=== PATIENT | male | born 1960 | race Caucasian/White ===

== ENCOUNTER 2018-04-04 14:38 | Emergency (ER) | payer MEDICARE ==
[~2018-04-04] VITALS: Ht 177.8 cm; Wt 67.1 kg
[~2018-04-04 14:38] MED LIST: ACET325 PO; ALBIPROI PO; AMOX500 PO; AMOX875 PO; ASPI325 PO; CIPR500 PO; FLUC150A PO; FLUT.05NI; HYDACE5 PO; LEVO750 PO; LOPE2C PO; MAGOXI400 PO; NAPR500 PO; ONDA4 PO; OXYC20L PO; PRED20 PO
[2018-04-04 15:45] LABS: Calcium, Ionized (POC) 0.96 mmol/L (1.10-1.46); Chloride (POC) 102 mmol/L (98-108); Creatinine (POC) 0.9 mg/dL (0.8-1.3); Glucose (ISTAT POC) 89 mg/dL (70-99); Hemoglobin (POC) 14.6 g/dL (13.5-17.5); Potassium (POC) 4.4 mmol/L (3.5-5.5); Sodium (POC) 137 mmol/L (135-148); Total CO2 (POC) 23 mmol/L (21-32)
== END 2018-04-04 16:49 | disposition home or self-care (01) ==
LOC: ER 14:38
PROVIDERS: Physician Assistant
DX: R10.13 Epigastric pain (principal); J43.9 Emphysema, unspecified; Z79.899 Other long term (current) drug therapy; F17.200 Nicotine dependence, unspecified, uncomplicated; Z85.818 Personal history of malignant neoplasm of other sites of lip, oral cavity, and pharynx
CPT/HCPCS: 36415; 74177; 80047; 85014; 99284-25; Q9967

== ENCOUNTER 2018-07-21 05:57 | Day surgery (SDC) | payer MEDICARE, SELFPAY ==
[~2018-07-21] VITALS: Ht 177.8 cm; Wt 68.5 kg
[~2018-07-21 05:57] MED LIST changes: +AEREDS; +ONE A DAY MENS PO; +THYR60 PO
--- NOTE | 2018-07-21 07:00 | NUR ---
Ambulatory in Day Surgery History, Chart, Medications and Allergies reviewed before start of procedure. Lungs clear T/O to Auscultation. Patient confirms NPO status and agrees with scheduled surgery. Pre-Op teaching done. Pt verbalizes understanding.
--- NOTE | 2018-07-21 09:20 | NUR ---
INTO STEP FROM PACU VSS DRSSING CDI OCCASIONAL COUGH. DENIES PAIN.
--- NOTE | 2018-07-21 10:05 | NUR ---
DISCHARGE INSTRUCITONS GONE OVER WITH Discharge instructions reviewed with patient. Patient verbalizes understanding. Copy given to patient to take home. Patient States Post-Procedure ride home has been arranged. Discharged via wheelchair to private car for ride home.
--- NOTE | 2018-07-22 09:29 | NUR ---
07/22/18 0929 Nanette Ernandez VERIFICATIONS: EDIT CHART.
== END 2018-07-21 22:45 | disposition home or self-care (01) ==
LOC: ORSCMMR 05:57 → ORD 07:30 → ORSCMMR 22:45
PROVIDERS: Surgery
PROC: 0WUF0JZ Supplement Abdominal Wall with Synthetic Substitute, Open Approach (ICD-10-PCS; principal; 2018-07-21 07:30)
DX: K43.9 Ventral hernia without obstruction or gangrene (principal); J44.9 Chronic obstructive pulmonary disease, unspecified; F17.210 Nicotine dependence, cigarettes, uncomplicated; E03.9 Hypothyroidism, unspecified; Z79.899 Other long term (current) drug therapy
CPT/HCPCS: C1781; J0690; J1100; J1885; J2250; J2370; J2405; J2704; J3010; J7120

== ENCOUNTER 2018-12-29 03:48 | Emergency (ER) | payer MEDICARE, OTHER ==
[~2018-12-29] VITALS: Ht 177.8 cm; Wt 70.3 kg
[2018-12-29] MEDS ORDERED: Cyclobenzaprine5 MG PO (06:00)
== END 2018-12-29 06:09 | disposition home or self-care (01) ==
LOC: ER 03:48
DX: S39.012A Strain of muscle, fascia and tendon of lower back, initial encounter (principal); F17.210 Nicotine dependence, cigarettes, uncomplicated; Z85.818 Personal history of malignant neoplasm of other sites of lip, oral cavity, and pharynx; Z79.899 Other long term (current) drug therapy; X50.0XXA Overexertion from strenuous movement or load, initial encounter
CPT/HCPCS: 72100; 96372; 99283-25; J1885; J7512

== ENCOUNTER 2019-05-02 02:34 | Emergency (ER) | payer MEDICARE, OTHER ==
[~2019-05-02] VITALS: Ht 177.8 cm; Wt 68.0 kg
[~2019-05-02 02:34] MED LIST changes: +Cyclobenzaprine5 MG PO
[2019-05-02 03:13] LABS: BASOPHILS ABSOLUTE AUTO 0.04 K/mm3 (0.00-0.23); BASOPHILS PERCENT AUTO 1 % (0-2); EOSINOPHILS ABSOLUTE AUTO 0.04 K/mm3 (0.00-0.68); EOSINOPHILS PERCENT AUTO 1 % (0-6); Hematocrit 49.2 % (37.0-53.0); Hemoglobin 15.8 g/dL (13.5-17.5); IMMATURE GRAN ABSOLUTE AUTO 0.01 K/mm3 (0.00-0.10); IMMATURE GRAN PERCENT AUTO 0 % (0-1); LYMPHOCYTES ABSOLUTE AUTO 0.75 K/mm3 (0.84-5.20); LYMPHOCYTES PERCENT AUTO 15 % (21-46); MONOCYTES ABSOLUTE AUTO 0.54 K/mm3 (0.16-1.47); MONOCYTES PERCENT AUTO 11 % (4-13); Mean Corpuscular HGB 28.2 pg (26.0-34.0); Mean Corpuscular HGB Conc 32.1 g/dL (31.5-36.5); Mean Corpuscular Volume 88 fL (80-100); Mean Platelet Volume 10.1 fL (9.1-12.4); NEUTROPHILS ABSOLUTE AUTO 3.78 K/mm3 (1.96-9.15); NEUTROPHILS PERCENT AUTO 73 % (41-73); Platelet Count 172 K/mm3 (150-400); RDW Coefficient Variation 12.8 % (11.7-14.2); RDW Standard Deviation 41.6 fL (35.1-46.3); White Blood Cell Count 5.16 K/mm3 (4.00-11.30)
[2019-05-02 03:37] LABS: Alanine Aminotransfer (ALT/SGP 27 U/L (12-78); Albumin, Blood 4.5 g/dL (3.4-5.0); Albumin/Globulin Ratio 1.2 (0.8-1.8); Alk Phos 76 U/L (50-136); Anion Gap 6 mmol/L (6-16); Aspartate Aminotrans (AST/SGOT 17 U/L (12-37); Bilirubin, Total 0.3 mg/dL (0.1-1.0); Blood Urea Nitrogen 7 mg/dL (8-24); Bun/Creatinine Ratio 7.2 (12.0-20.0); CO2, Blood 28 mmol/L (21-32); Calcium, Blood 9.3 mg/dL (8.5-10.1); Chloride, Blood 102 mmol/L (98-108); Creatinine, Blood 0.98 mg/dL (0.60-1.20); Globulin, Blood 3.9 g/dL (2.2-4.0); Glomerular Filtration Rate >60 (60-); Glucose, Blood 108 mg/dL (70-99); Potassium, Blood 4.2 mmol/L (3.5-5.5); Sodium, Blood 136 mmol/L (136-145); Total Protein, Blood 8.4 g/dL (6.4-8.2); Troponin I <0.015 ng/mL (0.000-0.040)
[2019-05-02] MEDS ORDERED: HYDHCL25 PO (03:46)
[2019-05-02] MEDS ORDERED: Prednisone20 MG PO (03:46)
[2019-05-03] MEDS ORDERED: SPACE CHAMBER1 EACH MC (16:52)
[2019-05-03] MEDS ORDERED: PRED10 PO (16:52)
[2019-05-03] MEDS ORDERED: AZIT250 PO (16:52)
== END 2019-05-02 04:07 | disposition home or self-care (01) ==
LOC: ER 02:34
PROVIDERS: Emergency Medicine
DX: J44.1 Chronic obstructive pulmonary disease with (acute) exacerbation (principal); F41.9 Anxiety disorder, unspecified; Z79.899 Other long term (current) drug therapy; F17.210 Nicotine dependence, cigarettes, uncomplicated
CPT/HCPCS: 36415; 71046; 80053; 84484; 85025; 93005; 93010; 94640; J7512

== ENCOUNTER 2019-05-03 13:06 | Emergency (ER) | payer MEDICARE, OTHER ==
[~2019-05-03] VITALS: Ht 177.8 cm; Wt 68.0 kg
[~2019-05-03 13:06] MED LIST changes: +HYDHCL25 PO; +Prednisone20 MG PO
[2019-05-03 13:45] LABS: Hematocrit 48.2 % (37.0-53.0); Hemoglobin 15.6 g/dL (13.5-17.5); Mean Corpuscular HGB 27.7 pg (26.0-34.0); Mean Corpuscular HGB Conc 32.4 g/dL (31.5-36.5); Mean Corpuscular Volume 86 fL (80-100); Mean Platelet Volume 10.3 fL (9.1-12.4); Platelet Count 167 K/mm3 (150-400); RDW Coefficient Variation 12.8 % (11.7-14.2); RDW Standard Deviation 40.2 fL (35.1-46.3); Red Blood Cell Count 5.63 M/mm3 (4.30-5.90); White Blood Cell Count 9.97 K/mm3 (4.00-11.30)
[2019-05-03 14:03] LABS: Alanine Aminotransfer (ALT/SGP 32 U/L (12-78); Albumin, Blood 4.4 g/dL (3.4-5.0); Albumin/Globulin Ratio 1.1 (0.8-1.8); Alk Phos 69 U/L (50-136); Anion Gap 7 mmol/L (6-16); Aspartate Aminotrans (AST/SGOT 21 U/L (12-37); Bilirubin, Total 0.4 mg/dL (0.1-1.0); Blood Urea Nitrogen 17 mg/dL (8-24); Bun/Creatinine Ratio 20.2 (12.0-20.0); CO2, Blood 28 mmol/L (21-32); Calcium, Blood 9.6 mg/dL (8.5-10.1); Chloride, Blood 102 mmol/L (98-108); Creatinine, Blood 0.84 mg/dL (0.60-1.20); Globulin, Blood 4.1 g/dL (2.2-4.0); Glomerular Filtration Rate >60 (60-); Glucose, Blood 108 mg/dL (70-99); Potassium, Blood 4.2 mmol/L (3.5-5.5); Sodium, Blood 137 mmol/L (136-145); Total Protein, Blood 8.5 g/dL (6.4-8.2); Troponin I <0.015 ng/mL (0.000-0.040)
[2019-05-03 14:21] LABS: BASOPHILS PERCENT MAN 0 % (0-2); EOSINOPHILS PERCENT MAN 0 % (0-6); LYMPHOCYTES ABSOLUTE MAN 0.69 K/mm3 (0.84-5.20); LYMPHOCYTES PERCENT MAN 7 % (21-46); MONOCYTES ABSOLUTE MAN 0.49 K/mm3 (0.16-1.47); MONOCYTES PERCENT MAN 5 % (4-13); NEUTROPHILS ABSOLUTE MAN 8.77 K/mm3 (1.96-9.15); SEG NEUTROPHILS PERCENT MAN 88 % (41-73); TOTAL CELLS COUNTED 100
[2019-05-03] MEDS ORDERED: AZIT250 PO (16:52)
[2019-05-03] MEDS ORDERED: SPACE CHAMBER1 EACH MC (16:52)
[2019-05-03] MEDS ORDERED: PRED10 PO (16:52)
== END 2019-05-03 17:25 | disposition home or self-care (01) ==
LOC: ER 13:06
PROVIDERS: Emergency Medicine
DX: J44.1 Chronic obstructive pulmonary disease with (acute) exacerbation (principal); F17.210 Nicotine dependence, cigarettes, uncomplicated; Z85.118 Personal history of other malignant neoplasm of bronchus and lung
CPT/HCPCS: 36415; 71045; 80053; 83880; 84484; 85025; 93005; 93010; 94644; 96374; 99284-25; J2930

== ENCOUNTER 2020-04-24 09:14 | Inpatient (IN) | payer MEDICARE, SELFPAY ==
[~2020-04-24] VITALS: Ht 177.8 cm; Wt 65.0 kg
[~2020-04-24 09:14] MED LIST changes: +AZIT250 PO; +PRED10 PO; +SPACE CHAMBER1 EACH MC
[2020-04-24] MEDS ORDERED: CILO100 PO (11:50)
[2020-04-24] MEDS ORDERED: Aspirin EC81 MG PO (11:50)
[2020-04-24 14:51] LABS: BASOPHILS ABSOLUTE AUTO 0.06 K/mm3 (0.00-0.23); BASOPHILS PERCENT AUTO 1 % (0-2); EOSINOPHILS PERCENT AUTO 1 % (0-6); Hematocrit 44.5 % (37.0-53.0); Hemoglobin 14.4 g/dL (13.5-17.5); IMMATURE GRAN ABSOLUTE AUTO 0.02 K/mm3 (0.00-0.10); IMMATURE GRAN PERCENT AUTO 0 % (0-1); LYMPHOCYTES ABSOLUTE AUTO 1.71 K/mm3 (0.84-5.20); LYMPHOCYTES PERCENT AUTO 23 % (21-46); MONOCYTES ABSOLUTE AUTO 0.45 K/mm3 (0.16-1.47); MONOCYTES PERCENT AUTO 6 % (4-13); Mean Corpuscular HGB 28.4 pg (26.0-34.0); Mean Corpuscular HGB Conc 32.4 g/dL (31.5-36.5); Mean Corpuscular Volume 88 fL (80-100); Mean Platelet Volume 10.8 fL (9.1-12.4); NEUTROPHILS ABSOLUTE AUTO 5.12 K/mm3 (1.96-9.15); NEUTROPHILS PERCENT AUTO 69 % (41-73); Platelet Count 178 K/mm3 (150-400); RDW Coefficient Variation 12.8 % (11.7-14.2); RDW Standard Deviation 41.3 fL (35.1-46.3); Red Blood Cell Count 5.07 M/mm3 (4.30-5.90); White Blood Cell Count 7.46 K/mm3 (4.00-11.30)
[2020-04-24 15:03] LABS: Alanine Aminotransfer (ALT/SGP 23 U/L (12-78); Albumin, Blood 4.1 g/dL (3.4-5.0); Albumin/Globulin Ratio 1.3 (0.8-1.8); Alk Phos 61 U/L (50-136); Anion Gap 4 mmol/L (6-16); Aspartate Aminotrans (AST/SGOT 11 U/L (12-37); Bilirubin, Total 0.5 mg/dL (0.1-1.0); Blood Urea Nitrogen 20 mg/dL (8-24); Bun/Creatinine Ratio 20.6 (12.0-20.0); CO2, Blood 30 mmol/L (21-32); Calcium, Blood 9.1 mg/dL (8.5-10.1); Chloride, Blood 107 mmol/L (98-108); Creatinine, Blood 0.97 mg/dL (0.60-1.20); Globulin, Blood 3.1 g/dL (2.2-4.0); Glomerular Filtration Rate >60 (60-); Glucose, Blood 84 mg/dL (70-99); Sodium, Blood 141 mmol/L (136-145); Total Protein, Blood 7.2 g/dL (6.4-8.2)
[2020-04-24 15:04] LABS: International Normalized Ratio 0.94; Prothrombin Time Results 10.1 Sec (9.7-11.5)
[2020-04-24 15:58] LABS: Influenza A, PCR NEGATIVE (NEGATIVE); Influenza B, PCR NEGATIVE (NEGATIVE); Resp Syncytial Virus, PCR NEGATIVE (NEGATIVE); SARS-Cov-2 (COVID-19) PCR, MMC NEGATIVE (NEGATIVE)
--- NOTE | 2020-04-24 17:48 | NUR ---
SUMMARY PT SITTING UP IN BED EATING DINNER, PT ADMITTED FROM THE ER, WILL HAVE A REVASCULARIZING PROCEDURE TOMORROW, A PROVIDER CAME UP TO SEE THE PT, PT IS ALERT AND ORIENTED, INDEPENDENT IN THE ROOM, L LEG COOL AND NUMB FROM MID BA DOWN, PULSES NOT PALPABLE ON THE L SIDE, FAINT ON THE RIGHT, PT DENIES ANY PAIN, VSS, NO COMPLAINTS, WILL CONT TO MONITOR
--- NOTE | 2020-04-25 07:43 | NUR ---
Abdias slept well considering staff was in his room several times to check IV pump, bathroom and plug ins after patient was oob to bathroom. No complaints of discomfort other that a high degree of sensivity over dorsal surface of left foot. Color of foot actually slightly improved overnight, still very difficult to genny and very clammy and cool. Patient worried and anxious about revascularization surgery today
--- NOTE | 2020-04-25 11:03 | NUR ---
PT ON HIS WAY TO THE FLOORING GRADER FOR REVASC PROCEDURE, AWAITING NEW BED ASSIGNMENT, WILL NOTIFY SPOUSE
--- NOTE | 2020-04-25 13:47 | NUR ---
PT ARRIVAL TO UNIT PT ARRIVED TO UNIT FROM [employer] TECHNICIAN. PT BRADYCARDIC, PHYSICIAN AWARE. BP STABLE. OXYGEN SATURATION STABLE ON RA. L RADIAL SITE WNL, TR BAND IN PLACE, WNL DRESSING C/D/I. L AND RIGHT FEMORAL SITES WNL, DRESSING C/D/I. PT HAVING DIFFICULTY REMAING FLAT ON BACK. SUPERVISOR [employer]MENT MAINTENANCE STUDENT SITTING WITH PT TO ENSURE PT REMAINS FLAT ON BACK AT THIS TIME.
--- NOTE | 2020-04-25 14:00 | NUR ---
PT ACCESS SITES PT HAS ACCESS SITES IN R AND L FEMORAL AND L RADIAL. SITE WNL. DRESSING C/D/I.
--- NOTE | 2020-04-25 14:32 | NUR ---
REPORT GIVEN TO PCU NURSE, BELONGINGS BROUGHT TO THE ROOM, PT'S SPOUSE NOTIFIED OF WHERE HE IS
--- NOTE | 2020-04-25 15:44 | NUR ---
PT ASSESSMENT AGREE WITH PRIOR RN'S PHYSICAL ASSESSMENT. WILL ADD WOUND DOCUMENTATION.
[2020-04-25] MEDS ORDERED: ACET325 PO (16:27)
[2020-04-25] MEDS ORDERED: ATOR80 PO (16:28)
[2020-04-25] MEDS ORDERED: CLOP75 PO (16:29)
[2020-04-25] MEDS ORDERED: HYDR1TAB94 PO (16:29)
--- NOTE | 2020-04-25 18:38 | NUR ---
PT DISCHARGE/SHIFT SUMMARY POST OP VITALS STABLE. TR BAND DELFATION BEGAN 2 HOURS AFTER INFLATION AT 1522. TR BAND DEFLATED AT 1729. TR BAND RMEOVED AT 1815. TEGADERM AND ARM BOARD IN PLACE. DRESSING WNL. C/D/I. FEMORAL ACCESS SITES WNL. DRESSING C/D/I. HOB ELEVATED BY 15 DEGREES PER PROTOCOL. PT SAT AT 45 DEGREES AT 1710. ABLE TO AMBULATE AT 1810. PT BEGAN TO VOMIT ONE TIME. SITES REMAIN WNL. PRIOR TO DISCHARGE PT ABLE TO INGEST LIQUID AND CRACKERS. DISCHARGE INSTRUCTIONS PROVIDED PER PHYSICIAN. NEW MEDICATION ORDERS ADDRESSED, FEMORAL AND RADIAL ACCESS POST OP INSTRUCTIONS PROVIDED. DOCUMENTS SIGNED AND IN PATIENTS CHART. PT'S TO DRIVE PT HOME. PT ESCORTED OUT BY JASKARAN CHAVEZ WITH BELONGINGS.
[2020-06-13] MEDS ORDERED: LEVSOD75 PO (13:52)
[2020-06-13] MEDS ORDERED: TOPROL XL25 MG PO (13:52)
[2020-06-14] MEDS ORDERED: ASPI81CH PO (07:32)
[2020-07-06] MEDS ORDERED: Norco 5-325 Ta1 EACH PO (13:46)
== END 2020-04-25 18:40 | disposition home or self-care (01) | DRG 253 ==
LOC: ER 09:14 → MEDS 09:15 → PCU 04-25 11:00
PROVIDERS: Physician Assistant; ADMIT Internal Medicine
PROC: B41DYZZ Fluoroscopy of Aorta and Bilateral Lower Extremity Arteries using Other Contrast (ICD-10-PCS; principal; 2020-04-25)
PROC: 047D34Z Dilation of Left Common Iliac Artery with Drug-eluting Intraluminal Device, Percutaneous Approach (ICD-10-PCS; 2020-04-25)
PROC: 047J34Z Dilation of Left External Iliac Artery with Drug-eluting Intraluminal Device, Percutaneous Approach (ICD-10-PCS; 2020-04-25)
DX: I70.222 Atherosclerosis of native arteries of extremities with rest pain, left leg (principal); I74.5 Embolism and thrombosis of iliac artery; Z20.822 Contact with and (suspected) exposure to COVID-19; Z79.899 Other long term (current) drug therapy; Z90.49 Acquired absence of other specified parts of digestive tract; J44.9 Chronic obstructive pulmonary disease, unspecified; Z98.890 Other specified postprocedural states; Z85.29 Personal history of malignant neoplasm of other respiratory and intrathoracic organs; Z87.891 Personal history of nicotine dependence; E03.9 Hypothyroidism, unspecified; F41.9 Anxiety disorder, unspecified
CPT/HCPCS: 0241U; 36140; 36200; 36415; 37221; 37223; 75625; 75716; 75774; 76937; 80053; 85025; 85347; 85610; 85730; 93926; 93971; 94760; 96365; 96366; 99152; 99153; 99285-25; A9270; C1760; C1769; C1874; C1887; C1894; G0378; J1644; J2250; J2405; J3010; J7030; J7050; Q9967

== ENCOUNTER 2020-07-09 06:58 | Day surgery (SDC) | payer MEDICARE, SELFPAY ==
[~2020-07-09] VITALS: Ht 177.8 cm; Wt 66.0 kg
[~2020-07-09 06:58] MED LIST changes: +ASPI81CH PO; +ATOR80 PO; +Aspirin EC81 MG PO; +CILO100 PO; +CLOP75 PO; +HYDR1TAB94 PO; +LEVSOD75 PO; +Norco 5-325 Ta1 EACH PO; +TOPROL XL25 MG PO
[2020-07-09] MEDS ORDERED: THYROID60 MG PO (07:44)
--- NOTE | 2020-07-09 08:01 | NUR ---
DR HILL, ANESTHESIA IN ROOM FOR ASSESSMENT. NEW ORDERS IN PLACE FOR DUONEB PER DR HILL.
--- NOTE | 2020-07-09 08:05 | NUR ---
RT TO ROOM FOR BREATHING TREATMENT. VSS.
--- NOTE | 2020-07-09 10:44 | NUR ---
CALLED TWICE AND UPDATES GIVEN. TOOK HER NUMBER AND INFORMED HER THAT i WOULD CALL HER WHNE THE PATIENT CAME BACK TO RECOVERY.
[2020-07-09 12:18] LABS: Source, Urine Catheter
[2020-07-09 12:20] LABS: Appearance, Urine Clear (Clear); Bilirubin, Urine Neg (Neg); Blood, Urine Neg (Neg); Color, Urine Yellow (P-Yellow); Glucose Qualitative, Urine Neg (Neg); Ketones, Urine Neg (Neg); Leukocyte Esterase, Urine Neg (Neg); Nitrite, Urine Neg (Neg); Protein, Urine Neg (Neg); Specific Gravity, Urine 1.005 (1.003-1.022); Urobilinogen, Urine NORM (Normal); pH, Urine 6.5 (5.0-8.0)
--- NOTE | 2020-07-09 12:45 | NUR ---
PATEINT AT THE BEDSIDE. CALMS PATIENT, STAYS AT THE BEDSIDE AND ASSISTING PATIENT WITH DRINKING COFFEE. PATIENT COMPLAINING OF SPASMS OF THE BLADDER. AGREED TO REMOVED THE CATHETER AT 1300, WITH ONLY 1 HOUR OF BEDREST LEFT AND PATIENT ALLOWED TO BE ON SIDE TO VOIDING.
--- NOTE | 2020-07-09 13:08 | NUR ---
COLE REMOVED AND PATIENT TURNED TO THE LEFT SIDE. URINAL IN PLACE AND PATIENT TRYING TO URINATE. TEACHING DONE THAT THE BLADDER WAS DRAINED BY THE COLE CATHETER AND THAT WHAT HE IS FEELING NOW MAY BE JUST SPASMS IN THE BLADDER FROM THE CATHETER PREVIOUSLY BEING THERE. AT THE BEDSIDE AND SUPPORTIVE TO THE PATIENT.
--- NOTE | 2020-07-09 13:15 | NUR ---
STARTED REVIEWING DISCAHRGE INSTRUCTIONS WITH THE PATINET AND . PATIENT HAS MEAL AT THE BEDSIDE BUT REFUSING TO EAT. DENIES BEING HUNGRY.
--- NOTE | 2020-07-09 13:40 | NUR ---
DR. RODRIGEZ AT THE BEDSIDE AND SPOKE EXTENSIVELY WITH THE PATIENT AND .
--- NOTE | 2020-07-09 14:39 | NUR ---
PATIENT UP TOT HE RESTROOM. PATIENT RAN TO THE RESTRROM AND VOIDED. SMALL TRACK OOZE NOTED FROM THE RIGHT GROIN. MANUAL PRESSURE HELD AND PATIENT PLACED BACK IN THE BED FOR CONTINUED BEDREST. AFTER 5 MINUTES OF MANUAL PRESSURE, OLD DRESSING REMOVED AND SITE CLEANED AND NEW DRESSING PLACED. NO FURTHER BLEEDING NOTED. PATIENT PLACED BACK ON THE MONITOR AND CONTINUE TO MONITOR GROIN.
--- NOTE | 2020-07-09 15:02 | NUR ---
RIGHT GROIN UNCHANGED. REMAINS AT THE BEDSIDE. PATIENT CALM AND VVS ON KARSTEN MONITOR. DRESSING TOT HE RIGHT GROIN CDI.
--- NOTE | 2020-07-09 15:48 | NUR ---
PATIENT UP OOB AT 1530 AND TO THE RESTROOM. NO BLEEDING NOTED. DRESSING TO THE RIGHT GROIN CDI. DRESSING TO THE LEFT DP WITH SMALL AMOUNT OF DRIED BLOOD TO THE CENTER OF THE DRESSING. UNCHANGED FOR THE LAST FEW HOURS. PIV REMOVED AND PRESSURE DRESSING APPLIED. REVEIWED DISCHARGE INSTRUCTIONS AND PATIENT SIGNED COPIES. A SET OF DISCHARGE INSTRUCTIONS WAS GIVEN TO THE PATIENT ALONG WITH STENT CARDS X TWO AND ANGIOSEAL CARD. PATIENT DRESSED AT 1545 AND GROIN AND FOOT DRESSING CHECKED AGAIN. NO CHANGES. ALL QUESTIONS ANSWERED AND PAITENT TO THE WHEELCHAIR. BRINGING CAR AROUND AND PATIENT DISCHARGED HOME.
== END 2020-07-09 16:00 | disposition home or self-care (01) ==
LOC: MHTC 06:58
PROVIDERS: Radiology Diagnostic Radiology
DX: I70.213 Atherosclerosis of native arteries of extremities with intermittent claudication, bilateral legs (principal)
CPT/HCPCS: 37227; 37228; 37232; 75710; 75716; 76937; 81003; 85347; 94640; C1714; C1725; C1760; C1769; C1874; C1887; C1894; C2623; J1644; J2250; J2370; J2704; J3010; J7030; J7040; J7050; Q9967

== ENCOUNTER 2020-07-30 06:58 | Day surgery (SDC) | payer MEDICARE, OTHER ==
[~2020-07-30] VITALS: Ht 177.8 cm; Wt 66.0 kg
[~2020-07-30 06:58] MED LIST changes: +THYROID60 MG PO
--- NOTE | 2020-07-30 12:57 | NUR ---
PT IV DC'D, DRESSED, AMB TO BTR AND STABLE ON FEET, R PT ACCESS SITE STABLE, SO SWELL OR BLEED SEEN, PT DC'D BY WC BY THIS RN W DRIVING PT HOME
== END 2020-07-30 12:45 | disposition home or self-care (01) ==
LOC: MHTC 06:58
DX: I70.223 Atherosclerosis of native arteries of extremities with rest pain, bilateral legs (principal); I74.5 Embolism and thrombosis of iliac artery; I83.812 Varicose veins of left lower extremity with pain; R06.00 Dyspnea, unspecified; J44.9 Chronic obstructive pulmonary disease, unspecified; Z87.891 Personal history of nicotine dependence
CPT/HCPCS: 37227; 75716; 76937; 93005; 93010; C1714; C1725; C1769; C1874; C1887; C1894; C2623; J1644; J2250; J3010; J7030; J7050; J7120; Q9967

== ENCOUNTER 2020-09-22 17:44 | Emergency (ER) | payer MEDICARE, OTHER ==
[~2020-09-22] VITALS: Ht 177.8 cm; Wt 65.8 kg
== END 2020-09-22 23:02 | disposition left against medical advice (07) ==
LOC: ER 17:44
DX: Z53.21 Procedure and treatment not carried out due to patient leaving prior to being seen by health care provider (principal)
CPT/HCPCS: 99282

== ENCOUNTER 2020-09-27 06:43 | Emergency (ER) | payer MEDICARE, OTHER ==
[~2020-09-27] VITALS: Ht 177.8 cm; Wt 56.2 kg
[2020-09-27] MEDS ORDERED: ONDA4ODT MM (09:38)
[2020-09-27] MEDS ORDERED: TRAZ50 PO (09:38)
[2020-09-27] MEDS ORDERED: PEPTO BISMOL PO (09:38)
== END 2020-09-27 10:12 | disposition home or self-care (01) ==
LOC: ER 06:43
DX: U07.1 COVID-19 (principal); Z79.82 Long term (current) use of aspirin; Z85.819 Personal history of malignant neoplasm of unspecified site of lip, oral cavity, and pharynx; Z87.891 Personal history of nicotine dependence
CPT/HCPCS: 71045; 96374; 99285-25; A9270

== ENCOUNTER 2025-02-08 17:51 | Inpatient (IN) | payer OTHER ==
[~2025-02-08] VITALS: Ht 175.3 cm; Wt 62.7 kg
[~2025-02-08 17:51] MED LIST changes: +ONDA4ODT MM; +PEPTO BISMOL PO; +TRAZ50 PO
[2025-02-08] MEDS ORDERED: LORazepam 2 MG/ML 1ML Injection IV ONE (18:00)
[2025-02-08] MEDS ORDERED: Magnesium Sulf 2 GM/Water 50ML 50 ML IV ONE (18:00)
[2025-02-08 18:15] LABS: pH Blood Venous 7.34 (7.34-7.37)
[2025-02-08 18:22] LABS: Hematocrit 46.1 % (37.0-53.0); Hemoglobin 15.3 g/dL (13.5-17.5); Mean Corpuscular HGB Conc 33.2 g/dL (31.5-36.5); Mean Corpuscular Volume 84 fL (80-100); NRBC ABSOLUTE 0.00 K/mm3 (0.00-0.02); NRBC Auto 0.0 /100 WBC (0.0-0.2); RDW Coefficient Variation 12.5 % (11.7-14.2); RDW Standard Deviation 38.6 fL (35.1-46.3)
[2025-02-08 18:40] LABS: Anion Gap 13.0 mmol/L (3-11); Blood Urea Nitrogen 16.0 mg/dL (8-24); CO2, Blood 23.0 mmol/L (21-32); Calcium, Blood 9.2 mg/dL (8.5-10.1); Chloride, Blood 101.0 mmol/L (98-108); Creatinine, Blood 0.67 mg/dL (0.60-1.20); Glucose, Blood 157.0 mg/dL (70-99); Potassium, Blood 4.0 mmol/L (3.5-5.5); Sodium, Blood 133.0 mmol/L (136-145)
[2025-02-08 18:48] LABS: BAND PERCENT MAN 3 % (0-8); BASOPHILS ABSOLUTE MAN 0.00 K/mm3 (0.00-0.23); BASOPHILS PERCENT MAN 0 % (0-2); EOSINOPHILS ABSOLUTE MAN 0.00 K/mm3 (0.00-0.68); EOSINOPHILS PERCENT MAN 0 % (0-6); LYMPHOCYTES ABSOLUTE MAN 1.05 K/mm3 (0.84-5.20); LYMPHOCYTES PERCENT MAN 12 % (21-46); MONOCYTES ABSOLUTE MAN 0.88 K/mm3 (0.16-1.47); MONOCYTES PERCENT MAN 10 % (4-13); NEUTROPHILS ABSOLUTE MAN 6.88 K/mm3 (1.96-9.15); SEG NEUTROPHILS PERCENT MAN 75 % (41-73)
[2025-02-08 18:50] LABS: Influenza A, PCR NEGATIVE (NEGATIVE); Influenza B, PCR NEGATIVE (NEGATIVE); Resp Syncytial Virus, PCR NEGATIVE (NEGATIVE); SARS-Cov-2 (COVID-19) PCR, MMC NEGATIVE (NEGATIVE)
[2025-02-08 18:51] LABS: Platelet Count 173 K/mm3 (150-400)
[2025-02-08] MEDS ORDERED: Albuterol 2.5 MG/3 ML VIAL INH PRN (21:00)
[2025-02-08] MEDS ORDERED: Ondansetron HCl 2 MG / ML 2ML Vial IV PRN (21:00)
[2025-02-08] MEDS ORDERED: FLU VACC TS2025-26(6MOS UP)/PF 45 MCG/0.5 ML SYRINGE IM SCH (21:00)
[2025-02-08] MEDS ORDERED: Ipratropium/Albuterol SulF 2.5-0.5MG/3 ML Amp INH SCH (21:00)
[2025-02-08] MEDS ORDERED: Lactobacil 2-S.Thermo-Bifido 1 1 Cap PO SCH (21:00)
[2025-02-08 22:03] VITALS: BP 128/73
[2025-02-08] MEDS ORDERED: ALBU2.5V5 INH (22:20)
[2025-02-08] MEDS ORDERED: STRIVERDI RESPIM4 G1 (22:21)
[2025-02-08 23:08] LABS: pH Blood Venous 7.41 (7.34-7.37)
--- NOTE | 2025-02-09 01:30 | NUR ---
LATE ENTRY ASSUMPTION OF CARE PT ARRIVED TO PCU 2154. PT STOOD AND TRNSFERED FROM [facility] TO PCU BED. PT DID GET VERY SOB WITH TRANSFER. PT SAT AT EDGE OF BED TRIPODING AND BOX BREATHING. PT VERY ANXIOUS. HE WAS ON 6L VIA NC, RT CAME TO BEDSIDE AND SWITCHED PT TO AIRVO. PT SATING >90% DURING THAT TIME. PT HR IN THE 90'S-110'S, SR. HE DENIED ANY CP/PRESSURE, NUMB/TINGLING, BP STABLE. PT AT BEDSIDE. PT RESTING IN BED HES ON AIRVO AT THIS TIME. 55LPM, 25% FIO2. CALL LIGHT IN REACH.
[2025-02-09 03:30] VITALS: BP 112/79
[2025-02-09 05:05] LABS: Hematocrit 38.3 % (37.0-53.0); Hemoglobin 12.6 g/dL (13.5-17.5); Mean Corpuscular HGB Conc 32.9 g/dL (31.5-36.5); Mean Corpuscular Volume 83 fL (80-100); NRBC ABSOLUTE 0.00 K/mm3 (0.00-0.02); NRBC Auto 0.0 /100 WBC (0.0-0.2); Platelet Count 188 K/mm3 (150-400); RDW Coefficient Variation 12.5 % (11.7-14.2); RDW Standard Deviation 38.0 fL (35.1-46.3)
[2025-02-09 05:47] LABS: Anion Gap 7.0 mmol/L (3-11); Blood Urea Nitrogen 16.0 mg/dL (8-24); CO2, Blood 26.0 mmol/L (21-32); Calcium, Blood 9.0 mg/dL (8.5-10.1); Chloride, Blood 102.0 mmol/L (98-108); Creatinine, Blood 0.64 mg/dL (0.60-1.20); Glucose, Blood 143.0 mg/dL (70-99); Potassium, Blood 4.3 mmol/L (3.5-5.5); Sodium, Blood 131.0 mmol/L (136-145)
--- NOTE | 2025-02-09 06:03 | NUR ---
SHIFT SUMMARY PT A&O X4, ANXIOUS, COOPERTIVE TO CARE. HR IN THE 80'S-90'S, SR. HE DENIED ANY CP/PRESSURE, NUMB/TINGLING, SBP STABLE. PT ON AIRVO, 55LPM, 25% FIO2. SpO2 >90%. HE DOES GET VERY SOB WITH EXERTION. PT HAS URINAL AT BEDSIDE. PT RECIEVING IV ABX AND STERIODS. PTS AT BEDSIDE. PT HGB THIS MORNING CAME DOWN TO 12.6 FROM 15.3, NOTIFIED NO NEW ORDERS AT THIS TIME. PT RESTINGIN BED AT THIS TIME. CALL LIGHT IN REACH. WILL MONITOR PT AND REPORT TO ONCOMING RN.
[2025-02-09 07:47] VITALS: BP 114/78
[2025-02-09] MEDS ORDERED: Enoxaparin 40 MG/0.4 ML SYR SC SCH (09:00)
[2025-02-09] MEDS ORDERED: CefTRIAXone Sodium 1,000 MG in NS 100 ML IV SCH (09:00)
[2025-02-09 12:02] VITALS: BP 133/88
[2025-02-09 16:04] VITALS: BP 133/92
--- NOTE | 2025-02-09 18:49 | NUR ---
SHIFT SMMARY PT A/OX4 AND COOPERATIVE OF CARE. PT EXPRESSED ANXIET RELATED TO HIS BREATHING AT TIMES. PT ABLE TO EXPRESS NEEDS AND CALLED APPROPIATEW. PT INDEPENDENT IN BED AND SBA WHEN UP IN ROOM. PT HR TACHY IN THELOW 100'S. OTHER VSS WITH O2 SATS IN THE 90'S ON RA. PT DENIED CHEST PAIN/PRESSURE THROUGHOUT SHIFT. PT REPORTED THAT HIS BREATHING IS "BACK TO NORMAL". PT CONTINUED TO RECIEVE IV STEROIDS AND ABX, SEE EMAR. PT ANXIOUS TO GO HOME IN THE MORNING. PRESENT FOR MOST OF THE DAY AND UPDATED ON PLAN OF CARE.
[2025-02-09] MEDS ORDERED: NS 250 ML IV PRN (20:15)
[2025-02-09] MEDS ORDERED: Diabetic GuaiFENesin 100 MG/5 ML 5MLUDC PO SCH (21:00)
[2025-02-09 21:30] VITALS: BP 140/88
[2025-02-10 00:04] VITALS: BP 134/87
[2025-02-10 03:13] LABS: pH Blood Venous 7.62 (7.34-7.37)
[2025-02-10 03:40] LABS: BASOPHILS ABSOLUTE AUTO 0.04 K/mm3 (0.00-0.23); BASOPHILS PERCENT AUTO 0 % (0-2); EOSINOPHILS ABSOLUTE AUTO 0.07 K/mm3 (0.00-0.68); EOSINOPHILS PERCENT AUTO 0 % (0-6); Hematocrit 38.8 % (37.0-53.0); Hemoglobin 12.9 g/dL (13.5-17.5); IMMATURE GRAN ABSOLUTE AUTO 0.10 K/mm3 (0.00-0.10); IMMATURE GRAN PERCENT AUTO 1 % (0-1); LYMPHOCYTES ABSOLUTE AUTO 0.69 K/mm3 (0.84-5.20); LYMPHOCYTES PERCENT AUTO 3 % (21-46); MONOCYTES ABSOLUTE AUTO 0.51 K/mm3 (0.16-1.47); MONOCYTES PERCENT AUTO 3 % (4-13); Mean Corpuscular HGB Conc 33.2 g/dL (31.5-36.5); Mean Corpuscular Volume 83 fL (80-100); NEUTROPHILS ABSOLUTE AUTO 18.60 K/mm3 (1.96-9.15); NEUTROPHILS PERCENT AUTO 93 % (41-73); NRBC ABSOLUTE 0.00 K/mm3 (0.00-0.02); NRBC Auto 0.0 /100 WBC (0.0-0.2); Platelet Count 228 K/mm3 (150-400); RDW Coefficient Variation 12.7 % (11.7-14.2); RDW Standard Deviation 38.3 fL (35.1-46.3)
[2025-02-10 04:06] LABS: Anion Gap 11.0 mmol/L (3-11); Blood Urea Nitrogen 23.0 mg/dL (8-24); CO2, Blood 25.0 mmol/L (21-32); Calcium, Blood 9.4 mg/dL (8.5-10.1); Chloride, Blood 101.0 mmol/L (98-108); Creatinine, Blood 0.7 mg/dL (0.60-1.20); Glucose, Blood 163.0 mg/dL (70-99); Potassium, Blood 3.7 mmol/L (3.5-5.5); Sodium, Blood 133.0 mmol/L (136-145)
[2025-02-10 04:21] VITALS: BP 149/97
--- NOTE | 2025-02-10 06:08 | NUR ---
Shift Summary Pt anxious t/o the shift, he is scared to go to sleep and worried he won't wake up if he does. He had a critical high PH on his VBG of 7.62, I called the resident who reviewed the chart and suggested anxiety medication. Pt will not take anxiety medication so resident asked me to have pt control his breathing and calm himself. Respiration rate is improved this AM and pt seems less anxoius, however he remains tachycardic HR 124-132 t/o most of the shift and this AM. At one point during the night pt stated he had an exacurbation and put himself into prone position to recover. I called RT who gave him a breathing treatment. No SPO2 desaturation events t/o the night. Pt remains on RA.
[2025-02-10 07:48] VITALS: BP 127/88
[2025-02-10] MEDS ORDERED: GUAI600T33 PO (10:47)
[2025-02-10] MEDS ORDERED: IPRAT-ALBUT 0.5-3 ML INH (10:48)
[2025-02-10] MEDS ORDERED: AZIT500 PO (10:49)
[2025-02-10] MEDS ORDERED: VISBIOME 112.51 EACH PO (10:49)
[2025-02-10] MEDS ORDERED: CEFU500T30 PO (10:50)
[2025-02-10] MEDS ORDERED: Prednisone10 MG PO (10:52)
--- NOTE | 2025-02-10 11:41 | NUR ---
DISCHARGE NOTE PT IS A/O X4 ABLE TO MAKE NEEDS KNOWN AND CAN MOVEEXTREMITIES EQUALLY AND BILATERALLY, PT IS AFEBRILE. PT IS SBA/IND IN THE ROOM. DISCHARGE INSTRUCTIONS PROVIDED TO PT. ALL BELONGINGS LEFT WITH PT. PT LEFT UNIT AT 1120.
== END 2025-02-10 11:20 | disposition home or self-care (01) | DRG 189 ==
LOC: ER 17:51 → PCU 20:56
PROVIDERS: Emergency Medicine; Internal Medicine; Nurse Practitioner Acute Care; ADMIT Student in an Organized Health Care Education/Training Program
PROC: 5A0935A Assistance with Respiratory Ventilation, Less than 24 Consecutive Hours, High Flow/Velocity Cannula (ICD-10-PCS; principal; 2025-02-08)
PROC: 3E03329 Introduction of Other Anti-infective into Peripheral Vein, Percutaneous Approach (ICD-10-PCS; 2025-02-08)
DX: J96.01 Acute respiratory failure with hypoxia (principal); J18.9 Pneumonia, unspecified organism; J44.0 Chronic obstructive pulmonary disease with (acute) lower respiratory infection; J44.1 Chronic obstructive pulmonary disease with (acute) exacerbation; E87.3 Alkalosis; R64 Cachexia; E87.1 Hypo-osmolality and hyponatremia; J96.02 Acute respiratory failure with hypercapnia; F41.9 Anxiety disorder, unspecified; J43.9 Emphysema, unspecified; D64.9 Anemia, unspecified; I73.9 Peripheral vascular disease, unspecified; E03.9 Hypothyroidism, unspecified; R00.0 Tachycardia, unspecified; Z85.89 Personal history of malignant neoplasm of other organs and systems; Z79.02 Long term (current) use of antithrombotics/antiplatelets; Z79.890 Hormone replacement therapy; Z79.82 Long term (current) use of aspirin; Z87.891 Personal history of nicotine dependence; Z68.20 Body mass index [BMI] 20.0-20.9, adult
CPT/HCPCS: 36415; 71045; 71260; 80048; 82803; 83880; 84484; 85025; 85027; 85379; 87637; 93005; 93010; 94640; 94664; 94762; 96374; 96375; 99285-25; A9270; J0456; J0696; J1650; J2060; J2919; J3475; J7050; Q9967